=== PATIENT | female | born 1950 | race Caucasian/White ===

== ENCOUNTER 2021-11-29 09:39 | Outpatient (CLI) | payer MEDICARE, OTHER, SELFPAY ==
--- NOTE | 2021-11-29 09:53 | MM_ITS ---
WS: [email or web address] BILATERAL SCREENING DIGITAL MAMMOGRAM WITH CAD HISTORY: SCREENING COMPARISON: 01/30/2019 and 01/24/2017 Bilateral CC and MLO views submitted. Computer aided detection analyzed. Breast composition: There are scattered areas of fibroglandular density. No suspicious masses, microc alcifications or architectural distortion. Benign calcification in the upper-outer quadrant of the RI GHT breast. Vascular calcifications are also noted in the RIGHT breast. MM/[place] [id number] IMPRESSION: BI-RADS: 2-Benign FOLLOW UP: 1 Year Follow-up
== END 2021-11-29 09:40 | disposition home or self-care (01) ==
LOC: RADSHAW 09:50
PROVIDERS: Visit Provider Family Medicine
DX: Z12.31 Encounter for screening mammogram for malignant neoplasm of breast (principal)
CPT/HCPCS: 77067

== ENCOUNTER → 2022-03-28 09:54 | Outpatient (BNVA) | payer MEDICARE, OTHER, SELFPAY | PROVIDERS: PCP Nurse Practitioner Family; Referring Provider Nurse Practitioner Family; Visit Provider Specialist | DX: G56.12 Other lesions of median nerve, left upper limb (principal) | CPT/HCPCS: 95908; 95910 ==

== ENCOUNTER → 2022-07-19 09:45 | Outpatient (BNVA) | payer MEDICARE, OTHER, SELFPAY | PROVIDERS: PCP Nurse Practitioner Family; Referring Provider Nurse Practitioner Family; Visit Provider Specialist | DX: M79.602 Pain in left arm (principal); M54.12 Radiculopathy, cervical region | CPT/HCPCS: 95886; 95907; 99202 ==

== ENCOUNTER → 2022-09-11 08:10 | Outpatient (BNVA) | payer MEDICARE, OTHER, SELFPAY | PROVIDERS: PCP Nurse Practitioner Family; Visit Provider Specialist | DX: M54.12 Radiculopathy, cervical region (principal); M79.7 Fibromyalgia | CPT/HCPCS: 20550; 20552; 99213 ==

== ENCOUNTER 2022-09-25 13:23 | Outpatient (CLI) | payer MEDICARE, OTHER, SELFPAY ==
--- NOTE | 2022-09-25 13:45 | MR_ITS ---
WS: [email or web address] MRI CERVICAL SPINE NONCONTRAST TECHNIQUE: Sagittal T1, T2 and STIR imaging. Axial T2, gradient, and fiesta imaging. CLINICAL INFORMATION: M54.12 - Radiculopathy, cervical region COMPARISON: None. FINDINGS: Straightening of the normal cervical lordosis with slight reversal. Slight anterolisthesis C4 on C5 a nd C7 on T1. Disc bulging worse at C5-C6. Cord signal is normal. Small amount of degenerative edema a t the C1-C2 and atlantooccipital articulations. Small amount of pannus at C1-C2 with mild edema. C2-C3: Disc osteophytic ridging. Mild LEFT foraminal narrowing. Mild facet arthropathy C3-C4: Mild disc osteophytic ridging. Advanced LEFT facet arthropathy. Mild LEFT foraminal narrowing. RIGHT foramen is patent. C4-C5: Slight anterolisthesis C4 on C5. Advanced LEFT facet arthropathy. Mild LEFT and no significant RIGHT foraminal narrowing. Spinal canal is patent. C5-C6: Disc osteophyte complex with indentation on the cervical cord eccentric to the RIGHT and mild central canal stenosis. Moderate RIGHT bony foraminal narrowing. Moderate facet arthropathy. LEFT for amen is patent. C6-C7: Disc osteophyte complex with endplate ridging. Mild central canal stenosis. Mild to moderate b ilateral bony foraminal narrowing. Uncovertebral joint hypertrophy. Mild facet arthropathy. C7-T1: Grade 1 anterolisthesis C7 on T1. Disc osteophyte complex eccentric to the RIGHT with mild RIG HT and no significant LEFT foraminal narrowing. Spinal canal is patent. Moderate facet arthropathy. Visualized brain stem structures: Normal. Prevertebral soft tissues: Normal. MR/MR cervical spin wo con* [id number] IMPRESSION: 1. Straightening with slight reversal of the normal cervical lordosis. Slight anterolisthesis C4 on C5 and C7 on T1. 2. Disc osteophyte complex worse at C5-C6 with indentation on cervical cord an d mild central canal stenosis. 3. Mild central canal stenosis C6-C7. 4. Mild to moderate bony foraminal narrowing worse at LEFT C3-C4, LEFT C4-C5, RIGHT C5-C6, bilateral C6-C7 and RIGHT C7-T1. 5. Advanced facet arthropathy LEFT C3-C4, LEFT C4-C5, and moderate to advanced RIGHT C5-C6.
== END 2022-09-25 13:24 | disposition home or self-care (01) ==
LOC: RAD 13:25
PROVIDERS: PCP Nurse Practitioner Family; Visit Provider Specialist
DX: M54.12 Radiculopathy, cervical region (principal); M79.602 Pain in left arm; M25.78 Osteophyte, vertebrae; M48.02 Spinal stenosis, cervical region; M47.812 Spondylosis without myelopathy or radiculopathy, cervical region
CPT/HCPCS: 72141

== ENCOUNTER → 2022-10-09 11:48 | Outpatient (BNVA) | payer MEDICARE, OTHER, SELFPAY | PROVIDERS: Visit Provider Specialist | DX: M54.12 Radiculopathy, cervical region (principal); Z71.89 Other specified counseling; M79.7 Fibromyalgia | CPT/HCPCS: 99214 ==

== ENCOUNTER 2023-01-04 09:38 | Outpatient (CLI) | payer MEDICARE, OTHER, SELFPAY ==
--- NOTE | 2023-01-04 09:47 | MM_ITS ---
WS: [email or web address] SCREENING DIGITAL TOMOSYNTHESIS MAMMOGRAM WITH CAD HISTORY: SCREENING COMPARISON: 11/29/2021 and 01/30/2019 Bilateral CC and MLO with tomosynthesis views submitted. Synthetic mammography reviewed. Computer aid ed detection analyzed. Breast composition: There are scattered areas of fibroglandular density. No suspicious masses, microc alcifications or architectural distortion. Benign calcification upper-outer quadrant RIGHT breast. MM/[place] [id number] IMPRESSION: BI-RADS: 2-Benign FOLLOW UP: 1 Year Follow-up
== END 2023-01-04 09:39 | disposition home or self-care (01) ==
LOC: RAD 09:43
PROVIDERS: PCP Nurse Practitioner Family; Visit Provider Family Medicine
DX: Z12.31 Encounter for screening mammogram for malignant neoplasm of breast (principal)
CPT/HCPCS: 77063; 77067

== ENCOUNTER → 2023-01-07 14:37 | Outpatient (BNVA) | payer MEDICARE, OTHER, SELFPAY | PROVIDERS: PCP Nurse Practitioner Family; Referring Provider Specialist; Visit Provider Specialist | DX: M79.7 Fibromyalgia (principal); M54.12 Radiculopathy, cervical region | CPT/HCPCS: 99213 ==

== ENCOUNTER → 2023-01-21 10:55 | Outpatient (BNVA) | payer MEDICARE, OTHER, SELFPAY | PROVIDERS: PCP Nurse Practitioner Family; Referring Provider Nurse Practitioner Family; Visit Provider Specialist | DX: M79.602 Pain in left arm (principal); M54.12 Radiculopathy, cervical region | CPT/HCPCS: 73030; 99204 ==

== ENCOUNTER → 2023-01-31 08:51 | Outpatient (BNVA) | payer MEDICARE, OTHER, SELFPAY | PROVIDERS: PCP Nurse Practitioner Family; Visit Provider Orthopaedic Surgery | DX: M54.12 Radiculopathy, cervical region (principal) | CPT/HCPCS: 72050; 99204 ==

== ENCOUNTER → 2023-02-26 11:08 | Outpatient (BNVA) | payer MEDICARE, OTHER, SELFPAY | PROVIDERS: PCP Nurse Practitioner Family; Referring Provider Orthopaedic Surgery; Visit Provider Anesthesiology Pain Medicine | DX: M54.12 Radiculopathy, cervical region (principal) | CPT/HCPCS: 72070; 99204 ==

== ENCOUNTER → 2023-03-07 14:34 | Outpatient (BNVA) | payer MEDICARE, OTHER, SELFPAY | PROVIDERS: PCP Nurse Practitioner Family; Visit Provider Anesthesiology Pain Medicine | DX: M79.18 Myalgia, other site (principal) | CPT/HCPCS: 20553 ==

== ENCOUNTER 2023-03-26 08:32 | Outpatient (CLI) | payer MEDICARE, OTHER, SELFPAY ==
--- NOTE | 2023-03-26 08:45 | MR_ITS ---
WS: [email or web address] MRI THORACIC SPINE noncontrast. HISTORY: M54.12 - Radiculopathy, cervical region COMPARISON: Thoracic spine radiograph 02/26/2023 TECHNIQUE: Multiplanar sequences are performed in sagittal and axial planes. Mild RIGHT long curvature thoracic spine. Disc spaces are diffusely narrowed. Small endplate osteophy delisa. Mild reactive marrow edema adjacent endplates at T7-8 and at T10. No signal abnormality within t he cord. Conus tapers normally and ends near L1. T1-2: Normal. T2-3: Normal. T3-4: Mild bilateral facet arthritis. T4-5: Very small central disc protrusion and mild facet arthritis. T5-6: Mild bilateral facet arthritis and foraminal narrowing. T6-7: Bilateral facet joint arthritis encroaching upon the thecal sac. Mild foraminal stenosis. T7-8: Mild annular disc bulge with mild bilateral foraminal narrowing and facet arthritis. T8-9: Artifact through the disc level. T9-10: Mild bilateral foraminal narrowing and facet arthritis. T10-11: Mild bilateral facet joint arthritis. Slightly greater than the remaining levels. T11-12: No stenosis. Paravertebral soft tissues are normal. MR/MR thoracic spin wo con* [id number] IMPRESSION: 1. No high-grade central or foraminal stenosis. 2. Moderate degenerative disc space narrowing throughout the thoracic spine wi th multilevel areas of facet joint arthritis. Most significant at the T10-11 le jessenia. 3. No focal disc protrusions.
== END 2023-03-26 08:33 | disposition home or self-care (01) ==
LOC: RAD 08:36
PROVIDERS: PCP Nurse Practitioner Family; Visit Provider Anesthesiology Pain Medicine
DX: M54.12 Radiculopathy, cervical region (principal); M47.814 Spondylosis without myelopathy or radiculopathy, thoracic region; M48.04 Spinal stenosis, thoracic region
CPT/HCPCS: 72146; 99204

== ENCOUNTER → 2023-04-24 10:11 | Outpatient (BNVA) | payer MEDICARE, OTHER, SELFPAY | PROVIDERS: PCP Nurse Practitioner Family; Visit Provider Anesthesiology Pain Medicine | DX: M51.17 Intervertebral disc disorders with radiculopathy, lumbosacral region (principal); M54.2 Cervicalgia; M79.7 Fibromyalgia; M79.602 Pain in left arm | CPT/HCPCS: 99215 ==

== ENCOUNTER → 2023-05-23 09:03 | Outpatient (BNVA) | payer MEDICARE, OTHER, SELFPAY | PROVIDERS: PCP Nurse Practitioner Family; Visit Provider Anesthesiology Pain Medicine | DX: M54.12 Radiculopathy, cervical region (principal); M48.02 Spinal stenosis, cervical region; M79.7 Fibromyalgia; M79.602 Pain in left arm | CPT/HCPCS: 99214 ==

== ENCOUNTER → 2023-06-06 14:18 | Outpatient (BNVA) | payer MEDICARE, OTHER, SELFPAY | PROVIDERS: PCP Nurse Practitioner Family; Visit Provider Anesthesiology Pain Medicine | DX: M54.12 Radiculopathy, cervical region (principal); M79.7 Fibromyalgia; M79.602 Pain in left arm | CPT/HCPCS: 62321; J1100 ==

== ENCOUNTER → 2023-06-25 08:50 | Outpatient (BNVA) | payer MEDICARE, OTHER, SELFPAY | PROVIDERS: PCP Nurse Practitioner Family; Visit Provider Anesthesiology Pain Medicine | DX: M79.7 Fibromyalgia; M79.602 Pain in left arm; M54.12 Radiculopathy, cervical region; M79.601 Pain in right arm | CPT/HCPCS: 99214 ==

== ENCOUNTER → 2023-07-02 13:46 | Outpatient (BNVA) | payer MEDICARE, OTHER, SELFPAY | PROVIDERS: PCP Nurse Practitioner Family; Visit Provider Orthopaedic Surgery | DX: M47.22 Other spondylosis with radiculopathy, cervical region (principal); Z01.818 Encounter for other preprocedural examination | CPT/HCPCS: 36415; 72040; 80053; 81001; 85025; 99214 ==

== ENCOUNTER 2023-07-24 05:48 | Day surgery (SDC) | payer MEDICARE, OTHER, SELFPAY ==
[2023-07-24] VITALS (11 sets, daily range): BP systolic 131–198; BP diastolic 65–87; PULSE 63–97; RESP 16–22; TEMP 36.2–36.3; O2SAT 96–100; BMI 30.9
--- NOTE | 2023-07-24 | XR_ITS ---
WS: [email or web address] XR cervical spine 1V [id number] REASON FOR EXAM: c5-6; c6-7 foraminotomies FINDINGS: Surgical instrument overlies the left side of the cervical spine at the C6 level. IMPRESSION: Localization of the cervical spine during surgery as above.
[2023-07-24] MEDS: sodium chloride 0.9% 1,000 ML 30 ML IV (06:25)
--- NOTE | 2023-07-24 06:33 | W.PM.OPSUD ---
Surgery/Procedure H&P Update DATE OF PROCEDURE: July 24, 2023 DATE H&P PERFORMED: 07/18/23 H&P UPDATE INFORMATION: I have reviewed H&P completed within last 30 days, I have examined patient prior to procedure and No changes to prior documentation PLANNED PROCEDURE: Operation Date: 07/24/23 07:00 Proposed Procedures p Cervical Decompression/ C5-6 and C6-7 foraminotomy(Not Applicable) - Santos Robbins, DO
--- NOTE | 2023-07-24 06:42 | ANES.PREANE2 ---
Pre-Anesthetic Assessment Height/Weight: Height 1.6 m Temp Pulse Resp BP Pulse Ox O2 Del Method 97.2 F L 63 18 198/87 98 Room Air 07/24/23 06:12 07/24/23 06:12 07/24/23 06:12 07/24/23 06:12 07/24/23 06:12 07/24/23 06:17 Preop Diagnosis: Cervical spondylosis with radiculopathy Operation Date: 07/24/23 07:00 Proposed Procedures p Cervical Decompression/ C5-6 and C6-7 foraminotomy(Not Applicable) - Santos Robbins, DO Was Beta Manfred taken within 24 hours: N/A Was Clonidine taken within 24 hours: N/A Last intake: Intake Last Liquid Date 07/23/23 Last Liquid Time 23:55 Last Solid Date 07/23/23 Last Solid Time 21:00 Social No tobacco Exam alert, oriented x 3, clear to auscultation bilaterally and regular rate & rhythm Airway Submandibular: within normal limits Cervical ROM: Other (Denies neck pain with movement) Mallampati: Class II Comments: Comments: Permanent bridge History/ROS No significant history except as noted and No significant complaints Metabolic Hyperlipidemia Anesthetic Plan ASA status: 2 Anesthesia: General Other: Video scope for intubation Risk of > 500 ml blood loss (7ml/kg in children): No Medications/Allergies Home Medications Medication Instructions Recorded Confirmed Last Taken Type [id number] Bone Growth Stimulator #1 ea 07/10/23 Unknown Rx atorvastatin 10 mg tablet 10 mg PO DAILY 07/18/23 07/23/23 07/23/23 History Allergies Allergy/AdvReac Type Severity Reaction Status Date / Time No Known Allergies Allergy Verified 07/23/23 12:44 Current Medications Generic Name Dose Route Start Last Admin Trade Name Freq PRN Reason Stop Dose Admin Sodium Chloride 1,000 mls @ 30 mls/hr 07/24/23 06:00 07/24/23 06:25 Sodium Chloride 0.9% IV 07/25/23 05:59 30 mls/hr .Q24H SEBASTIEN Administration PFSH Anesthesia Social History Smoking and tobacco status: never smoked Alcohol intake: never Substance/Drug Use: never Data Anesthesia Cardiac Studies: No Data to Display
[2023-07-24] MEDS: midazolam 1 mg/mL INJ 2 mL 2 MG IVP (06:50)
[2023-07-24] MEDS: ceFAZolin 2,000 MG in sodium chloride 0.9% (plus) 50 ML 100 MG IV (07:12)
[2023-07-24] MEDS: lidocaine-epi 1% 20 mL INJ INJECTION (08:20)
--- NOTE | 2023-07-24 08:51 | PM.OP ---
Operative Report Date of procedure: July 24, 2023 Pre-op diagnosis: Cervical spondylosis with radiculopathy Post-op diagnosis: same Procedure done: 1. C5-6 laminectomy with partial facetectomy 2. C6-7 laminectomy with partial facetectomy Surgeon: Santos Robbins DO Hooker Laster: Michael Sun Hooker Laster: The hand frame surgical elastic knitter, Michael Sun, PAC was needed for his expertise under the microscope. He was important and necessary throughout the procedure to complete in a safe and timely manner. He assisted with patient positioning prepping and draping tissue retraction suctioning of the operative field protection of the dural sac and tissue closure Estimated blood loss (mL): 25 Procedure: 1. C5-6 laminectomy with partial facetectomy 2. C6-7 laminectomy with partial facetectomy Patient is brought to the operative suite. After undergoing anesthesia they are placed in the prone position. All areas of impingement are well padded. Patient is then prepped and draped in the normal sterile fashion. A skin incision is made over the C5/6 level. This is confirmed under c-arm guidance. A series of dilators are passed and the tubular retractor is docked on the C5 lamina. A bovie is used to clear the soft tissue off the lamina and the C5-6 facet joint. A high speed adrian is then used to perform the laminectomy and take down the medial aspect of the C5/6 facet joint. A kerrison rongeure was then used to take down the remaining lamina and smooth the edge of the laminectomy up to the point where the ligamentum flavum attaches. Attention was then brought to the medial aspect of the facet joint. The remaining medial aspect of the superior and inferior aspect of the facet joint were taken down with the kerrison from the pedicle of C5 to C6. The facet joint had significant hypertrophy. Attention was then brought to the Ligamentum Flavum. The ligament was taken down from the lamina of C5 to C6 and out medially to the remaining facet joint. The ligament was taken down. The dura was then exposed. The dura was in good repair. The nerve was then traced with a curette out the C6 foramen and found to be adequately decompressed. The C7 nerve was traced with a curette around the C6 pedicle. The lateral recess was opened with a kerrison helping to further decompress the C7 nerve. Wound is then irrigated copiously with saline and surgiflo is used to stop any bleeding. The tubular retractor is removed and Due to was tilted down over the C6/7 level. This is confirmed under c-arm guidance. A series of dilators are passed and the tubular retractor is docked on the C6 lamina. A bovie is used to clear the soft tissue off the lamina and the C6/7 facet joint. A high speed adrian is then used to perform the laminectomy and take down the medial aspect of the C6/7 facet joint. A kerrison rongeure was then used to take down the remaining lamina and smooth the edge of the laminectomy up to the point where the ligamentum flavum attaches. Attention was then brought to the medial aspect of the facet joint. The remaining medial aspect of the superior and inferior aspect of the facet joint were taken down with the kerrison from the pedicle of C6 to C7. The facet joint had significant hypertrophy. Attention was then brought to the Ligamentum Flavum. The ligament was taken down from the lamina of C6 to C7 and out medially to the remaining facet joint. The ligament was thick against. The dura was then exposed. The dura was in good repair. The C7 nerve was then traced with a curette out the C7 foramen and found to be adequately decompressed. The C8 nerve was traced with a curette around the C8 pedicle. The lateral recess was opened with a kerrison helping to further decompress the C8 nerve. Wound is then irrigated copiously with saline and surgiflo is used to stop any bleeding. The tubular retractor is removed and the wound is closed with vicryl and monocryl suture. Glue is then used to protect the wound. A sterile dressing is then placed. Patient was then placed in the supine position and transferred to the PACU in stable condition.
[2023-07-24] MEDS: HYDROcodone-acetaminophen 5-325 mg Tablet 2 TAB PO (09:35)
--- NOTE | 2023-07-24 18:17 | ANE.PACU2 ---
Inpatient post-anesthesia follow up: Airway intact: Yes Vital signs: Temperature 97.2 F Pulse Rate 77 Respiratory Rate 18 Blood Pressure 156/82 Pulse Oximetry 96 Oxygen Delivery Me thod Room Air Oxygen Flow Rate 6 Fraction of Inspir ed Oxygen Hydration adequate: Yes Nausea and vomiting: No Pain level: 2 Mental status: Baseline
== END 2023-07-24 10:24 | disposition home or self-care (01) ==
PROVIDERS: PCP Nurse Practitioner Family; Visit Provider Orthopaedic Surgery
PROC: (CPT 63001; principal; 2023-07-24 07:00)
DX: M54.12 Radiculopathy, cervical region (principal); E78.5 Hyperlipidemia, unspecified
CPT/HCPCS: 63045; 63048; 51702; 72020; 76000; J0131; J0330; J0690; J1100; J2250; J2371; J2405; J2704; J3010; J3490; J7030; L0172

== ENCOUNTER → 2023-08-13 13:56 | Outpatient (BNVA) | payer MEDICARE, OTHER, SELFPAY | PROVIDERS: PCP Nurse Practitioner Family; Visit Provider Orthopaedic Surgery | DX: Z47.89 Encounter for other orthopedic aftercare; M47.22 Other spondylosis with radiculopathy, cervical region | CPT/HCPCS: 99024 ==

== ENCOUNTER → 2023-09-03 13:47 | Outpatient (BNVA) | payer MEDICARE, OTHER, SELFPAY | PROVIDERS: PCP Nurse Practitioner Family; Visit Provider Orthopaedic Surgery | DX: M47.22 Other spondylosis with radiculopathy, cervical region (principal); Z47.89 Encounter for other orthopedic aftercare | CPT/HCPCS: 72040; 99024 ==

== ENCOUNTER → 2023-10-10 10:17 | Outpatient (BNVA) | payer MEDICARE, OTHER, SELFPAY | PROVIDERS: PCP Nurse Practitioner Family; Visit Provider Orthopaedic Surgery | DX: Z47.89 Encounter for other orthopedic aftercare (principal) | CPT/HCPCS: 72040; 99024 ==

== ENCOUNTER → 2024-01-07 09:21 | Outpatient (BNVA) | payer MEDICARE, OTHER, SELFPAY | PROVIDERS: PCP Nurse Practitioner Family; Visit Provider Orthopaedic Surgery | DX: Z48.89 Encounter for other specified surgical aftercare (principal) | CPT/HCPCS: 99213 ==

== ENCOUNTER 2024-01-23 11:12 | Outpatient (CLI) | payer MEDICARE, OTHER, SELFPAY ==
--- NOTE | 2024-01-23 11:18 | MM_ITS ---
WS: [email or web address] Bilateral screening 3D tomosynthesis digital mammogram, 01/23/2024 Clinical Data: SCREENING Comparison: 01/04/2023, 11/29/2021, 01/30/2019, 01/04/2017, 01/20/2015, 02/09/2013, 01/14/2012, 09/18/2010, , 09/23/2006. Findings: The breast parenchymal pattern shows fibroglandular tissue. No spiculated masses or clustered calcifi cations are seen. There are no secondary signs of carcinoma. Impression: 1. Negative bilateral mammogram unchanged. 2. Recommend annual screening mammograms. MM/[place] [id number] BIRADS: 1-Negative FOLLOW UP: 1 Year Follow-up The CAD stock checker was used.
== END 2024-01-23 11:13 | disposition home or self-care (01) ==
LOC: RAD 11:12
PROVIDERS: PCP Nurse Practitioner Family; Visit Provider Nurse Practitioner Family
DX: Z12.31 Encounter for screening mammogram for malignant neoplasm of breast (principal)
CPT/HCPCS: 77063; 77067

== ENCOUNTER → 2025-01-20 09:53 | Outpatient (BNVA) | payer MEDICARE, OTHER, SELFPAY | PROVIDERS: PCP Nurse Practitioner Family; Visit Provider Podiatrist Foot & Ankle Surgery | DX: M79.672 Pain in left foot (principal); M21.621 Bunionette of right foot; M21.622 Bunionette of left foot; M20.41 Other hammer toe(s) (acquired), right foot; M20.42 Other hammer toe(s) (acquired), left foot; M21.612 Bunion of left foot; M21.611 Bunion of right foot | CPT/HCPCS: 73630; 99203 ==

== ENCOUNTER 2025-02-11 13:41 | Outpatient (CLI) | payer MEDICARE, OTHER, SELFPAY ==
--- NOTE | 2025-02-11 13:40 | MM_ITS ---
WS: [email or web address] VIEWS: MLO and CC views both breasts. 3D digital tomosynthesis is also included in this exam. Comparison made with prior exam of 01/23/2024, 01/04/2023, 11/29/2021, 01/30/2019, 01/24/2017, 02/09/2013, 01/20/2015, 01/14/2012, 09/18/2010, 08/26/2008, 09/23/2006.. Findings: There are scattered areas of fibroglandular density. No sign of suspicious mass, tumor calcification or architectural distortion. MM/MM scr BI tomosynthesis [id number] Impression: BI-RADS: 2 - Benign FOLLOW-UP: 1 Year Follow-up This mammogram was also analyzed by the Computer Aided Detection System R2 [employer]pper.
== END 2025-02-11 13:42 | disposition home or self-care (01) ==
PROVIDERS: PCP Nurse Practitioner Family; Visit Provider Nurse Practitioner Family
DX: Z12.31 Encounter for screening mammogram for malignant neoplasm of breast (principal); R92.323 Mammographic fibroglandular density, bilateral breasts
CPT/HCPCS: 77063; 77067